=== PATIENT | male | born 2005 | race Caucasian/White ===

== ENCOUNTER 2024-12-05 12:30 | Emergency (ER) | payer MEDICAID ==
[~2024-12-05] VITALS: Ht 165.1 cm; Wt 54.7 kg
[2024-12-05 13:01] VITALS: BP 150/72; PULSE 105; RESP 18; TEMP 97.3; O2SAT 98
--- NOTE | 2024-12-05 14:27 | Physician Documentation ---
History of Present Illness ~ Chief Complaint: Sore Throat Stated Complaint: THROAT PAIN Time Seen by MD: 14:13 HPI 19-year-old male reports a sore throat for the last three days. Denies fever cough Day of Onset: Dec 05, 2024 Medication Reconciliation Allergies: Coded Allergies: No Known Allergies (Unverified , 12/05/24) Scheduled Amoxicillin Trihydrate* (Amoxicillin*), 1 CAP PO Q8H Review of Systems All Other Systems at this time: Reviewed and Negative ROS As stated above in the HPI, otherwise all systems are reviewed and negative. Physical Exam Vital Signs: Temperature: 97.3, Heart Rate: 105, Respiratory Rate: 18, BP: 150/72, Pulse Oximetry: 98, Weight: 54.700 Oxygen Flow Rate: 0 Physical Exam General: Alert, no apparent distress. Pharynx: tonsilar exudate notable Respiratory: Lungs clear, no respiratory distress. Cardiovascular: Regular rate and rhythm, no murmurs. Gastrointestinal: Soft, nontender, nondistended. Bowels sounds present. Neurologic: Oriented x4. Psychiatric: Normal mood and affect. Skin: Normal color, warm and dry. No edema, no ecchymosis. Progress Results/Orders Results/Orders Completed Orders - URBANO BANKS [employer] D[employer] REPAIRER Strep A Rapid (12/05/24 14:13) Hill Screen (12/05/24 14:25) Amoxicillin Capsule (Trimox Capsule) (12/05/24 16:30) Medications Received in ER Medications (Trade) Dose Ordered Sig/Xavi Route PRN Reason Start Time Stop Time Status Last Admin Dose Admin (Trimox capsule) 500 mg ONCE ONCE PO 12/05/24 16:30 12/05/24 16:31 DC 12/05/24 16:46 500 MG Vital Signs 12/05/24 13:01 Temp 97.3 Pulse 105 Resp 18 B/P (MAP) 150/72 Pulse Ox 98 O2 Flow Rate 0 Laboratory Tests Test 12/05/24 15:28 12/05/24 16:04 Group A Streptococcus Rapid Positive H Monoscreen Negative Medical Decision Making Findings Patient tested positive for strep going to treat him accordingly Throat Diff Dx: Considerations: Include: AIDS, Epiglottitis, Esophageal candidiasis, Hand foot mouth disease, Herpangina, Herpetic stomatitis, Herpes simplex, Infection mononucleosis, Immunodeficiency, Rico's angina, Peritonsillar abscess, Peritonsillar cellulitis, Pharyngitis-diphtheria, Pharyngitis-strepococcal, Pharyngitis-viral, Thrush, URI, Other Departure Disposition: HOME / SELF CARE / HOMELESS Impression: Primary Impression: Throat swab culture positive Condition: Stable Discharge Instructions: Strep Throat, Adult Referrals: NO PRIMARY CARE PROVIDER (PCP) Prescriptions Amoxicillin Trihydrate* (Amoxicillin*) 500 Mg Capsule 1 CAP PO Q8H for 10 Days, #30 CAP Prov: URBANO BANKS [employer] REPAIRER 12/05/24 Education Educated: Patient Educated regarding: diagnosis Signature Scribe Signature: h Attestation: Scribed for Urbano Banks Gluing Pressman by Urbano Ochoa NP . 12/05/24 16:28 URBANO BANKS [employer] REPAIRER Dec 05, 2024 14:27
[2024-12-05 15:45] LABS: STREP A SCREEN POSITIVE (Neg)
[2024-12-05] MEDS ORDERED: AMOX500C2 PO (16:27)
[2024-12-05 17:01] LABS: MONOTEST NEGATIVE (Neg)
== END 2024-12-05 16:46 | disposition home or self-care (01) ==
LOC: ER 12:30
DX: J02.9 Acute pharyngitis, unspecified (principal)
CPT/HCPCS: 36415; 86308; 87880; 99283